=== PATIENT | female | born 1975 | race Caucasian/White ===

== ENCOUNTER 2017-05-05 03:54 | Emergency (ER) | payer MEDICAID ==
[~2017-05-05] VITALS: Ht 152.4 cm; Wt 65.3 kg
[2017-05-05 04:00] VITALS: BP 113/58
--- NOTE | 2017-05-05 04:06 | NUR ---
PT TAKEN TO BED 11.
[2017-05-05 04:08] VITALS: BP 113/58
--- NOTE | 2017-05-05 04:08 | NUR ---
PATIENT IS A 41 Y/O FEMALE WHO PRESENTS TO THE ED C/O ABD PAIN. PT STATES, "MY STOMACH HAS BEEN HURTING SINCE YESTERDAY BUT 20 MINUTES AGO IT GOT WORSE." PT REPORTS 4/10 ACHING EPIGASTRIC PAIN THAT DOES NOT RADIATE. PT DENIES CP, SOB, REPORTS NAUSEA DENIES VOMITING/DIARRHEA. PT AAOX4, RR EVEN/UNLABORED. PT REPOSITIONED FOR COMFORT, BED IN LOWEST POSITION. ER MD DR. WINSTON NOTIFIED. WILL CONTINUE TO MONITOR.
[2017-05-05] MEDS ORDERED: DICYCLOMINE HCL LIQUID 10 MG/5 ML UDC PO ONE (04:20)
[2017-05-05] MEDS ORDERED: ALUMINUM HYD/MAG/SIMETHICONE 30 ML UDC PO ONE (04:20)
[2017-05-05] MEDS ORDERED: LIDOCAINE VISCOUS 2% 20 ML UDC PO ONE (04:20)
[2017-05-05] MEDS ORDERED: PANTOPRAZOLE 40 MG TABEC PO ONE (05:15)
[2017-05-05] MEDS ORDERED: MORPHINE SULFATE 2 MG/ML SYR IM ONE (05:15)
--- NOTE | 2017-05-05 05:41 | NUR ---
Patient discharged with v/s stable. Written and verbal after care instructions given and explained. Patient alert, oriented and verbalized understanding of instructions. Ambulatory with steady gait. All questions addressed prior to discharge. ID band removed. Patient advised to follow up with PMD. Rx of TRAMADOL HYDROCHLORIDE, OMEPRAZOLE AND MAALOX given. Patient educated on indication of medication including possible reaction and side effects. Opportunity to ask questions provided and answered.
== END 2017-05-05 05:41 | disposition home or self-care (01) ==
LOC: MED 03:54
DX: K21.9 Gastro-esophageal reflux disease without esophagitis (principal); E78.00 Pure hypercholesterolemia, unspecified; Z86.2 Personal history of diseases of the blood and blood-forming organs and certain disorders involving the immune mechanism
CPT/HCPCS: 81002; 81025; 96372; 99284; J2270